=== PATIENT | female | born 1980 | race African-American/Black ===

== ENCOUNTER 2016-10-01 20:35 | Inpatient (IN) | payer OTHER, SELFPAY ==
[~2016-10-01 20:35] MED LIST: ALBUTEROL INH 0.3 ML; DIFLUCAN150 MG PO; GUMMI BEAR MUL1 EAC1 PO; HYCET 7.5 MG-3473 ML PO; LISINOPRIL-HC PO; TRAMADOL HCL50 M2 PO; VENTOLIN HFA18 GM INH; VITAMIN D50000 UNIT PO; VOLTAREN GEL 1100 G1 TOP; ZOFRAN ODT4 MG/UDTAB SL; ZYRTEC10 M3 PO
[2016-10-01] MEDS ORDERED: LAXATIVE5 M4 PO (21:28)
[2016-10-01] MEDS ORDERED: BACTRIM DS TAB1 EAC2 PO (21:29)
[2016-10-01] MEDS ORDERED: PERCOCET 5-3251 EACH PO (21:29)
[2016-10-01 22:09] LABS: BASO % 0.2 % (0-2); EOS % 0.9 % (0-7); EOSINOPHIL ABSOLUTE COUNT 0.1 tho/cmm (0.0-0.7); IMMATURE GRANULOCYTES ABSOLUTE 0.02 tho/cmm (0-0.03); IMMATURE GRANULOCYTES PERCENT 0.2 % (0-0.3); LYMPH % 20.7 % (20-45); LYMPH ABSOLUTE COUNT 1.9 tho/cmm (0.8-4.5); MCH (MEAN CORPUSCULAR HGB) 22.8 pg (28.0-32.0); MCV (MEAN CELL VOLUME) 75.5 fl (82.0-96.0); MEAN PLATELET VOLUME 8.2 cmc (9.4-12.4); MONO % 18.9 % (0-12); MONOCYTE ABSOLUTE COUNT 1.7 tho/cmm (0.0-1.2); NEUTROPHIL ABSOLUTE COUNT 5.3 tho/cmm (1.6-8.0); NEUTROPHIL-AUTOMATED 5.3 tho/cmm (1.6-8.0); NEUTROPHILS % 59.1 % (40-80); PLATELET COUNT 413 tho/cmm (150-450); RED BLOOD COUNT 3.02 mil/cmm (4.00-5.20); RED CELL DISTRIBUTION WIDTH 16.9 % (12.4-16.4); WHITE BLOOD COUNT 8.9 tho/cmm (4.0-10.0)
[2016-10-01 22:17] LABS: ANION GAP 12 mmol/L (0-20); BLOOD UREA NITROGEN 7 mg/dl (6-24); CALCIUM 8.6 mg/dl (8.5-10.5); CARBON DIOXIDE-VENOUS 24 mmol/L (22-32); CHLORIDE 106 mmol/l (96-110); CREATININE 0.85 mg/dl (0.50-1.10); GLUCOSE 109 mg/dL (70-110); SODIUM 138 mmol/L (135-145); eGFR VALUE FOR BLACK >90 mL/Min
[2016-10-01 22:18] LABS: HCT-HEMATOCRIT 22.8 % (34.0-49.0); MCHC MEAN CORPUSCULAR HGB CONC 30.3 % (32.0-36.0)
[2016-10-01 22:20] LABS: HGB-HEMOGLOBIN 6.9 gm/dl (12.0-15.5)
[2016-10-01 22:41] LABS: URINE BILIRUBIN NEGATIVE (NEG); URINE BLOOD MODERATE (NEG); URINE GLUCOSE (UA) NEGATIVE (NEG); URINE KETONE NEGATIVE (NEG); URINE LEUKOCYTE ESTERASE NEGATIVE (NEG); URINE NITRITE NEGATIVE (NEG); URINE PROTEIN NEGATIVE (NEG)
[2016-10-01 22:48] LABS: URINE APPEARANCE CLEAR; URINE COLOR PALE YELLOW
[2016-10-01 22:54] LABS: URINE EPITHELIAL CELLS 0-5 /[HPF] (0-10)
[2016-10-02 07:48] LABS: HCT-HEMATOCRIT 24.2 % (34.0-49.0); HGB-HEMOGLOBIN 7.6 gm/dl (12.0-15.5); IMMATURE GRANULOCYTES ABSOLUTE 0.02 tho/cmm (0-0.03); IMMATURE GRANULOCYTES PERCENT 0.2 % (0-0.3); LYMPH % 8.5 % (20-45); LYMPH ABSOLUTE COUNT 0.8 tho/cmm (0.8-4.5); MCHC MEAN CORPUSCULAR HGB CONC 31.4 % (32.0-36.0); MCV (MEAN CELL VOLUME) 77.8 fl (82.0-96.0); MEAN PLATELET VOLUME 8.8 cmc (9.4-12.4); MONO % 5.4 % (0-12); MONOCYTE ABSOLUTE COUNT 0.5 tho/cmm (0.0-1.2); NEUTROPHIL ABSOLUTE COUNT 8.2 tho/cmm (1.6-8.0); NEUTROPHIL-AUTOMATED 8.2 tho/cmm (1.6-8.0); NEUTROPHILS % 85.9 % (40-80); PLATELET COUNT 367 tho/cmm (150-450); RED BLOOD COUNT 3.11 mil/cmm (4.00-5.20); RED CELL DISTRIBUTION WIDTH 17.1 % (12.4-16.4); WHITE BLOOD COUNT 9.5 tho/cmm (4.0-10.0)
[2016-10-02 07:56] LABS: MCH (MEAN CORPUSCULAR HGB) 24.4 pg (28.0-32.0)
[2016-10-02 08:03] LABS: ANION GAP 13 mmol/L (0-20); BLOOD UREA NITROGEN 6 mg/dl (6-24); CALCIUM 8.2 mg/dl (8.5-10.5); CARBON DIOXIDE-VENOUS 24 mmol/L (22-32); CHLORIDE 107 mmol/l (96-110); CREATININE 0.73 mg/dl (0.50-1.10); GLUCOSE 146 mg/dL (70-110); POTASSIUM 4.7 mmol/L (3.7-5.1); SODIUM 139 mmol/L (135-145); eGFR VALUE FOR BLACK >90 mL/Min
--- NOTE | 2016-10-02 18:53 | NUR ---
VIRTUAL CARE NOTE: PT IN BED, WITH PARENTS IN THE ROOM, STATES OVERALL PAIN LEVEL IS A 4-5 WHICH IS TOLERABLE FOR HER. STATES HAS WALKED X2 TODAY. ENCOURAGED TO AMBULATE AT LEAST ONE MORE TIME TONIGHT. DENIES FURTHER NEEDS OR QUESTIONS AT THIS TIME. INSTRUCTE TO CALL FOR FURTURE NEEDS. STATES VERBAL UNDERSTANDING.
[2016-10-03 06:12] LABS: BASO % 0.2 % (0-2); EOS % 0.8 % (0-7); EOSINOPHIL ABSOLUTE COUNT 0.1 tho/cmm (0.0-0.7); HCT-HEMATOCRIT 24.8 % (34.0-49.0); HGB-HEMOGLOBIN 7.9 gm/dl (12.0-15.5); IMMATURE GRANULOCYTES ABSOLUTE 0.03 tho/cmm (0-0.03); IMMATURE GRANULOCYTES PERCENT 0.4 % (0-0.3); LYMPH ABSOLUTE COUNT 2.1 tho/cmm (0.8-4.5); MCH (MEAN CORPUSCULAR HGB) 25.1 pg (28.0-32.0); MCHC MEAN CORPUSCULAR HGB CONC 31.9 % (32.0-36.0); MCV (MEAN CELL VOLUME) 78.7 fl (82.0-96.0); MEAN PLATELET VOLUME 8.8 cmc (9.4-12.4); MONO % 13.4 % (0-12); MONOCYTE ABSOLUTE COUNT 1.1 tho/cmm (0.0-1.2); NEUTROPHIL ABSOLUTE COUNT 5.1 tho/cmm (1.6-8.0); NEUTROPHIL-AUTOMATED 5.1 tho/cmm (1.6-8.0); NEUTROPHILS % 60.2 % (40-80); PLATELET COUNT 320 tho/cmm (150-450); RED BLOOD COUNT 3.15 mil/cmm (4.00-5.20); RED CELL DISTRIBUTION WIDTH 17.3 % (12.4-16.4); WHITE BLOOD COUNT 8.4 tho/cmm (4.0-10.0)
[2016-10-03 06:27] LABS: ANION GAP 12 mmol/L (0-20); BLOOD UREA NITROGEN 5 mg/dl (6-24); CALCIUM 8.2 mg/dl (8.5-10.5); CARBON DIOXIDE-VENOUS 23 mmol/L (22-32); CHLORIDE 112 mmol/l (96-110); CREATININE 0.66 mg/dl (0.50-1.10); GLUCOSE 106 mg/dL (70-110); POTASSIUM 4.2 mmol/L (3.7-5.1); SODIUM 143 mmol/L (135-145); eGFR VALUE FOR BLACK >90 mL/Min
[2016-10-03 06:34] LABS: IRON 13 ug/dl (37-170); IRON BINDING CAPACITY 239 ug/dl (250-450)
--- NOTE | 2016-10-04 11:46 | NUR ---
virtual care note: pt in bed, getting ready to eat her lunch. states she has been more tired today and has been experiencing some nausea. states she has been trying to force fluids, as well as has gone on some walks. encouraged ambulation and use of I.S. and she is agreeable to this. will continue to monitor. electronic chart reviewed.
[2016-10-05 06:49] LABS: ALB/GLOB RATIO 0.5 (0.8-2.0); ALBUMIN 2.2 g/dl (3.5-5.0); ALKALINE PHOSPHATASE 53 U/L (33-138); ALT/SGPT 10 U/L (12-78); ANION GAP 12 mmol/L (0-20); AST/SGOT 14 U/L (10-40); BILIRUBIN,TOTAL 0.3 mg/dl (0-1.5); BLOOD UREA NITROGEN 7 mg/dl (6-24); CALCIUM 8.5 mg/dl (8.5-10.5); CARBON DIOXIDE-VENOUS 25 mmol/L (22-32); CHLORIDE 107 mmol/l (96-110); CREATININE 0.73 mg/dl (0.50-1.10); GLUCOSE 85 mg/dL (70-110); POTASSIUM 4.3 mmol/L (3.7-5.1); SODIUM 140 mmol/L (135-145); eGFR VALUE FOR BLACK >90 mL/Min
[2016-10-05 07:06] LABS: BASO % 0.6 % (0-2); EOS % 9.2 % (0-7); EOSINOPHIL ABSOLUTE COUNT 0.7 tho/cmm (0.0-0.7); HCT-HEMATOCRIT 31.5 % (34.0-49.0); IMMATURE GRANULOCYTES ABSOLUTE 0.06 tho/cmm (0-0.03); IMMATURE GRANULOCYTES PERCENT 0.8 % (0-0.3); LYMPH % 28.8 % (20-45); MCV (MEAN CELL VOLUME) 80.6 fl (82.0-96.0); MEAN PLATELET VOLUME 8.4 cmc (9.4-12.4); MONO % 10.8 % (0-12); MONOCYTE ABSOLUTE COUNT 0.8 tho/cmm (0.0-1.2); NEUTROPHIL ABSOLUTE COUNT 3.5 tho/cmm (1.6-8.0); NEUTROPHIL-AUTOMATED 3.5 tho/cmm (1.6-8.0); NEUTROPHILS % 49.8 % (40-80); PLATELET COUNT 364 tho/cmm (150-450); RED BLOOD COUNT 3.91 mil/cmm (4.00-5.20); RED CELL DISTRIBUTION WIDTH 17.5 % (12.4-16.4); WHITE BLOOD COUNT 7.1 tho/cmm (4.0-10.0)
[2016-10-05 07:09] LABS: HGB-HEMOGLOBIN 9.9 gm/dl (12.0-15.5); MCH (MEAN CORPUSCULAR HGB) 25.3 pg (28.0-32.0); MCHC MEAN CORPUSCULAR HGB CONC 31.4 % (32.0-36.0)
[2016-10-06 06:04] LABS: BASO % 0.4 % (0-2); EOS % 5.1 % (0-7); EOSINOPHIL ABSOLUTE COUNT 0.4 tho/cmm (0.0-0.7); HCT-HEMATOCRIT 31.3 % (34.0-49.0); HGB-HEMOGLOBIN 9.7 gm/dl (12.0-15.5); IMMATURE GRANULOCYTES ABSOLUTE 0.04 tho/cmm (0-0.03); IMMATURE GRANULOCYTES PERCENT 0.6 % (0-0.3); LYMPH % 26.8 % (20-45); LYMPH ABSOLUTE COUNT 1.9 tho/cmm (0.8-4.5); MCV (MEAN CELL VOLUME) 80.7 fl (82.0-96.0); MONO % 12.6 % (0-12); MONOCYTE ABSOLUTE COUNT 0.9 tho/cmm (0.0-1.2); NEUTROPHIL ABSOLUTE COUNT 3.9 tho/cmm (1.6-8.0); NEUTROPHIL-AUTOMATED 3.9 tho/cmm (1.6-8.0); NEUTROPHILS % 54.5 % (40-80); PLATELET COUNT 373 tho/cmm (150-450); RED BLOOD COUNT 3.88 mil/cmm (4.00-5.20); RED CELL DISTRIBUTION WIDTH 17.7 % (12.4-16.4); WHITE BLOOD COUNT 7.2 tho/cmm (4.0-10.0)
[2016-10-07] MEDS ORDERED: SENNA-S TABLET1 EAC3 PO (11:15)
[2016-10-07] MEDS ORDERED: AUGMENTIN 875-1 EAC2 PO (11:15)
[2016-10-07] MEDS ORDERED: PERCOCET 5-3251 EACH PO (11:16)
[2016-10-08] MEDS ORDERED: ZOFRAN4 M2 PO (14:08)
[2016-10-14] MEDS ORDERED: XANAX1 M1 PO (12:58)
== END 2016-10-08 19:25 | DRG 863 ==
LOC: 5WD 20:35 → ORW 23:06 → 5WD 10-02 00:55
PROVIDERS: Family Medicine; Internal Medicine; ADMIT Plastic Surgery
PROC: 0H97X0Z Drainage of Abdomen Skin with Drainage Device, External Approach (ICD-10-PCS; 2016-10-01)
PROC: 02HV33Z Insertion of Infusion Device into Superior Vena Cava, Percutaneous Approach (ICD-10-PCS; principal; 2016-10-02)
DX: T81.4XXA Infection following a procedure, initial encounter (principal); D62 Acute posthemorrhagic anemia; Z68.41 Body mass index [BMI] 40.0-44.9, adult; D50.9 Iron deficiency anemia, unspecified; E66.01 Morbid (severe) obesity due to excess calories
CPT/HCPCS: C1751; G0009; J0290; J0690; J1170; J2270; J2405; J2543; J3370; J3480; J7030; P9016